=== PATIENT | female | born 1955 | race Caucasian/White ===

== ENCOUNTER → 2023-07-16 12:25 | Outpatient (CLI) | payer MEDICARE, SELFPAY ==
--- NOTE | 2023-07-16 12:28 | DI.MG.S_ITS ---
BILATERAL DIGITAL SCREENING MAMMOGRAM 3D/2D WITH CAD: 07/16/2023 CLINICAL: Routine screening. Comparison is made to exams dated: 08/26/2020 mammogram, 08/20/2020 mammogram, 08/15/2020 mammogram, 04/29/2021 mammogram, and 03/01/2018 mammogram - Outside facility. There are scattered areas of fibroglandular density in both breasts (category b / 25%-50% glandular tissue). Current study was also evaluated with a Computer Aided Detection (CAD) system. There is a biopsy clip in both breasts. No significant masses, calcifications, or other findings are seen in either breast. There has been no significant interval change. IMPRESSION: BENIGN There is no mammographic evidence of malignancy. A 1 year screening mammogram is recommended. Based on the Tyrer Cuzick model (a risk assessment model) the patient's lifetime risk is 5.2% and her 10 year risk is 2.7%. According to the ACR, ACS, and NCCN guidelines, an annual breast MRI exam along with mammogram is recommended if the patient's lifetime risk is 20% or greater. This exam was interpreted at Station ID: [id number]. NOTE: For mammograms, a report in lay terms will be sent to the patient. Approximately 15% of breast malignancies will not be visualized mammographically. In the management of a palpable breast mass, a negative mammogram must not discourage biopsy of a clinically suspicious lesion. Electronically Signed By: Kerwin [email or web address]:07/22/2023 12:52:36 letter sent: Normal Exam ACR BI-RADS Category 2: Benign Finding(s) 3342F
== END ==
PROVIDERS: Referring Provider Family Medicine; Visit Provider Family Medicine
DX: Z12.31 Encounter for screening mammogram for malignant neoplasm of breast (principal); R92.323 Mammographic fibroglandular density, bilateral breasts
CPT/HCPCS: 77063; 77067

== ENCOUNTER → 2025-03-26 | Outpatient (CLI) | payer MEDICARE, SELFPAY ==
--- NOTE | 2025-03-26 14:40 | DI.MG.S_ITS ---
MM screening mammo BI: 03/26/2025. BI-RADS: 2 CLINICAL: 70-year old female for bilateral screening mammogram. Tyrer-Cuzick lifetime risk of 4.2%. No personal or first-degree family history of breast cancer. The patient had prior bilateral breast biopsies. PRIOR EXAMS: 07/16/2023, 04/29/2021, 08/26/2020, 08/20/2020, 08/15/2020, 03/01/2018. MAMMOGRAPHY TECHNIQUE: 2D and 3D (tomosynthesis) digital mammographic views obtained, with additional images as needed for full coverage. Current study was also evaluated with a Computer Aided Detection (CAD) system. DENSITY B. There are scattered areas of fibroglandular density. MAMMOGRAPHY FINDINGS Bilateral: Biopsy markers present. There are no suspicious masses, calcifications, or other findings in the breast. IMPRESSION: * No evidence of malignancy with benign findings. RECOMMENDATIONS Bilateral * Annual screening mammography. OVERALL ASSESSMENT CATEGORY BI-RADS-2: Benign. The [employer] recommends annual screening mammography beginning at age 40 for women with average risk of breast cancer. ELECTRONICALLY SIGNED: Carla Mcclendon M.D. on 03/28/2025 at 10:03:28 AM PT Interpreting Station ID: [id number]
== END ==
LOC: MAMMO 14:38
PROVIDERS: PCP Family Medicine; Referring Provider Family Medicine; Visit Provider Family Medicine
DX: Z12.31 Encounter for screening mammogram for malignant neoplasm of breast (principal)
CPT/HCPCS: 77063; 77067